=== PATIENT | female | born 1935 | race Caucasian/White ===

== ENCOUNTER 2018-11-29 12:53 | Emergency (ER) | payer MEDICARE, OTHER ==
[2018-11-29] MEDS: ACETAMINOPHEN 325 MG TAB PO (14:22)
== END 2018-11-29 16:06 | disposition home or self-care (01) ==
LOC: FTE 12:53
DX: S62.101A Fracture of unspecified carpal bone, right wrist, initial encounter for closed fracture (principal); S00.33XA Contusion of nose, initial encounter; I10 Essential (primary) hypertension; W18.39XA Other fall on same level, initial encounter; Y92.810 Car as the place of occurrence of the external cause; Z79.4 Long term (current) use of insulin
CPT/HCPCS: 29125; 70160; 73110-RT; 99284-25